=== PATIENT | female | born 1970 | race Caucasian/White ===

== ENCOUNTER → 2021-10-27 | Outpatient (CLI) | payer BC ==
--- NOTE | 2021-10-27 16:00 | DIREP ---
PROCEDURE:CT PELVIS W/O COMPARISON:None. INDICATIONS:M46.1 Sacroiliitis, M54.50 LOW BACK PAIN TECHNIQUE:Axial images were created through the pelvis without intravenous contrast material. No oral contrast was administered. 3D reformatted images were performed on independent workstation. Sagittal and coronal reconstructions were performed from source images. FINDINGS: AORTA/VASCULAR:Normal. No aneurysm. RETROPERITONEUM:Normal. No mass or adenopathy. BOWEL/MESENTERY:Normal. There is no intestinal obstruction, free fluid, free air or mesenteric inflammatory changes. ABDOMINAL WALL:Normal. No mass or hernia. PELVIC ORGANS:Normal. No visible mass. Pelvic organs appropriate for patient age. BONES:Minimal bilateral femoral acetabular degenerative changes. Number versus of previous sacroiliac screw fixation status post removal. Partially visualized lower lumbar laminectomy and posterior fusion changes. No visualized erosions, bilateral eburnation, or other CT evidence of sacroiliitis. OTHER: None. CONCLUSION:Postsurgical and degenerative changes. No acute visualized process. Dictated by: Dakotah Gomez DO on 10/27/2021 at 03:56 PM
== END | disposition home or self-care (01) ==
LOC: RAD 14:05
PROVIDERS: ATTEND Orthopaedic Surgery
DX: M46.1 Sacroiliitis, not elsewhere classified (principal); M54.50 Low back pain, unspecified
CPT/HCPCS: 72192